=== PATIENT | male | born 1960 | race Caucasian/White ===

== ENCOUNTER 2023-10-02 08:15 | Inpatient (IN) | payer BC ==
[2023-10-02] MEDS: HEPARIN SODIUM 1,000 UN/ML (10ML VL) IV ONE ×2 (08:37→08:39)
[2023-10-02] MEDS: ASPIRIN 81 MG PO STA (08:37)
[2023-10-02] MEDS: SODIUM CHLORIDE 0.9% 1,000 ML IV STA (08:38)
--- NOTE | 2023-10-02 08:39 | ED ---
Chest Pain HPI - General Chief Complaint: Chest Pain Stated Complaint: chest pain Time Seen by Provider: 10/02/23 08:25 Source: patient Mode of arrival: ambulatory Limitations: no limitations - History of Present Illness Initial Comments: 63-year-old man with no diagnosed medical history who presents emergency department reporting chest pain. Chest pain has been on and off since Monday. States the pain is 10 out of 10, substernal with pressure into both of his arms. He denies previous cardiac history. No previous stress testing. Denies high blood pressure, high cholesterol or diabetes. No shortness of breath. No nausea or vomiting. Denies fevers, chills or cough. No other alleviating, precipitating or modifying factors - Related Data Home Medications Medication Instructions Recorded Confirmed Multivitamins, Thera [Multivitamin 1 tab PO DAILY 10/02/23 10/02/23 (formulary)] Vitamin B Complex 1 cap PO DAILY 10/02/23 10/02/23 Vitamin C (Unknown Strength) 1 dose PO DAILY 10/02/23 10/02/23 Vitamin D3 (Unknown Strength) 1 dose PO DAILY 10/02/23 10/02/23 Zinc (Unknown Strength) 1 dose PO DAILY 10/02/23 10/02/23 Allergies Allergy/AdvReac Type Severity Reaction Status Date / Time No Known Allergies Allergy Verified 10/02/23 10:52 Review of Systems ROS Statement: Those systems with pertinent positive or pertinent negative responses have been documented in the HPI. ROS Other: All systems not noted in ROS Statement are negative. Past Medical History Past Medical History: No Reported History History of Any Multi-Drug Resistant Organisms: None Reported Past Surgical History: No Surgical Hx Reported Past Psychological History: No Psychological Hx Reported Smoking Status: Never smoker Past Alcohol Use History: Occasional Past Drug Use History: None Reported General Exam Limitations: no limitations General appearance: alert, in no apparent distress Head exam: Present: atraumatic, normocephalic, normal inspection Eye exam: Present: normal appearance, PERRL, EOMI. Absent: scleral icterus, conjunctival injection, periorbital swelling ENT exam: Present: normal exam, mucous membranes moist Neck exam: Present: normal inspection. Absent: tenderness, meningismus, lymphadenopathy Respiratory exam: Present: normal lung sounds bilaterally. Absent: respiratory distress, wheezes, rales, rhonchi, stridor Cardiovascular Exam: Present: regular rate, normal rhythm, normal heart sounds. Absent: systolic murmur, diastolic murmur, rubs, gallop, clicks GI/Abdominal exam: Present: soft, normal bowel sounds. Absent: distended, t enderness, guarding, rebound, rigid Extremities exam: Present: normal inspection, full ROM, normal capillary refill. Absent: tenderness, pedal edema, joint swelling, calf tenderness Back exam: Present: normal inspection Neurological exam: Present: alert, oriented X3, CN II-XII intact Psychiatric exam: Present: normal affect, normal mood Skin exam: Present: warm, dry, intact, normal color. Absent: rash Course Vital Signs 10/02/23 10/02/23 10/02/23 08:17 08:40 08:50 Temperature 98.3 F Pulse Rate 70 78 80 Respiratory 20 20 18 Rate Blood Pressure 154/105 158/119 161/102 O2 Sat by Pulse 99 98 98 Oximetry Chest Pain MDM - MDM Was pt. sent in by a medical professional or institution (, PA, PREVENTIVE MEDICINE PHYSICIAN, urgent care, hospital, or group home...) When possible be specific @ -No Did you speak to anyone other than the patient for history (EMS, parent, family, police, friend...)? What history was obtained from this source @ -Spoke with family for history Did you review nursing and triage notes (agree or disagree)? Why? @ -I reviewed and agree with nursing and triage notes Were old charts reviewed (outside hosp., previous admission, EMS record, old EKG, old radiological studies, urgent care reports/EKG's, group home records)? Report findings @ -No old charts were reviewed Differential Diagnosis (chest pain, altered mental status, abdominal pain women, abdominal pain men, vaginal bleeding, weakness, fever, dyspnea, syncope, headache, dizziness, GI bleed, back pain, seizure, CVA, palpatations, mental health, musculoskeletal)? @ -Differential Chest Pain: Stable Angina, Unstable Angina, STEMI, NSTEMI Aortic Dissection, Pneumothorax, Musculoskeletal, Esophageal Spasm GERD, Cholecystitis, Pancreatitis, Zoster, this is not meant to be an all-inclusive list. EKG interpreted by me (3pts min.). @ -Yes and demonstrates sinus rhythm with a rate of 77. OK interval 178. QRS 92. QTc of 394. ST segment elevation in V2 through V5, 1 and aVL. Reciprocal depression 3 and aVF. Q waves present X-rays interpreted by me (1pt min.). @ -Yes and demonstrates no acute process CT interpreted by me (1pt min.). @ -None done U/S interpreted by me (1pt. min.). @ -None done What testing was considered but not performed or refused? (CT, X-rays, U/S, labs)? Why? @ -None What meds were considered but not given or refused? Why? @ -None Did you discuss the management of the patient with other professionals (professionals i.e. DrAdolph, PA, PREVENTIVE MEDICINE PHYSICIAN, lab, RT, psych nurse, outreach and education social worker, regional medical director, teacher, executive vice president and chief operating officer, medical case worker)? Give summary @ -Spoke with Dr. Lainez who will take the patient to the [facility]. Also spoke with May from [facility] Was smoking cessation discussed for >3mins.? @ -No Was critical care preformed (if so, how long)? @ -Yes, 35 minutes for management of STEMI Were there social determinants of health that impacted care today? How? (Homelessness, low income, unemployed, alcoholism, drug addiction, transportat ion, low edu. Level, literacy, decrease access to med. care, fdc, rehab)? @ -No Was there de-escalation of care discussed even if they declined (Discuss DNR or withdrawal of care, Hospice)? DNR status @ -No What co-morbidities impacted this encounter? (DM, HTN, Smoking, COPD, CAD, Cancer, CVA, ARF, Chemo, Hep., AIDS, mental health diagnosis, sleep apnea, morbid obesity)? @ -None Was patient admitted / discharged? Hospital course, mention meds given and route, prescriptions, significant lab abnormalities, going to OR and other pertinent info. @ -Upon arrival patient seen and evaluated in room 24. Thorough history and physical exam was performed. Twelve-lead EKG was obtained which demonstrated ST segment elevation. [facility] was activated. Spoke with Dr. Lainez. Patient had been given 4000 units of heparin. He requested an additional 3000 units. Patient was also given aspirin. Liter bolus of normal saline. Patient taken to the [facility] in stable condition Undiagnosed new problem with uncertain prognosis? @ -No Drug Therapy requiring intensive monitoring for toxicity (Heparin, Nitro, Insulin, Cardizem)? @ -No Were any procedures done? @ -No Diagnosis/symptom? @ -Acute chest pain, acute STEMI Acute, or Chronic, or Acute on Chronic? @ -Acute Uncomplicated (without systemic symptoms) or Complicated (systemic symptoms)? @ -Complicated Side effects of treatment? @ -No Exacerbation, Progression, or Severe Exacerbation? @ -No Poses a threat to life or bodily function? How? (Chest pain, [place], MA, pneumonia, PE, COPD, DKA, ARF, appy, cholecystitis, CVA, Diverticulitis, Homicidal, Suicidal, threat to staff... and all critical care pts) @ -Yes as patient arrives with active STEMI Disposition Clinical Impression: STEMI (ST elevation myocardial infarction), Chest pain Disposition: ADMITTED IP TO THIS [facility] Condition: Serious Is patient prescribed a controlled substance at d/c from ED?: No Time of Disposition: 08:39 Decision to Admit Reason: Admit from EC Decision Date: 10/02/23 Decision Time: 08:39
[2023-10-02] MEDS: NITROGLYCERIN SL TABS 0.4 MG TAB SUBLINGUAL PRN (08:40)
[2023-10-02] MEDS ORDERED: NALOXONE 0.4 MG/ML 1 ML VIAL IV PRN (08:45)
[2023-10-02] MEDS ORDERED: fentaNYL (PF) 50 MCG/ML 2 ML AMP ONE ×2 (08:49→12:29)
[2023-10-02 08:50] LABS: Basophils # (A) 0.1 k/uL (0-0.2); Basophils % (A) 1 %; Eosinophils # (A) 0.2 k/uL (0-0.7); Eosinophils % (A) 2 %; HCT 48.4 % (39.0-53.0); HGB 17.2 gm/dL (13.0-17.5); Lymphocytes % (A) 17 %; MCH 33.1 pg (25.0-35.0); MCHC 35.5 g/dL (31.0-37.0); MCV 93.2 fL (80.0-100.0); Mean Platelet Volume 8.8; Monocytes # (A) 0.8 k/uL (0-1.0); Monocytes % (A) 7 %; Neutrophils # (A) 8.5 k/uL (1.3-7.7); Neutrophils % (A) 72 %; Platelet Count 251 k/uL (150-450); RBC 5.19 m/uL (4.30-5.90); RDW 12.7 % (11.5-15.5); WBC 11.8 k/uL (3.8-10.6)
[2023-10-02] MEDS ORDERED: HEPARIN SODIUM 1,000 UN/ML (10ML VL) ONE ×2 (08:51→12:29)
[2023-10-02] MEDS: SODIUM CHLORIDE 0.9% 1,000 ML IV ONE ×2 (08:52→12:39)
[2023-10-02 08:55] LABS: ALT 53 U/L (4-49); AST 43 U/L (17-59); African American GFR (CKD) >90 (>60 ml/min/1.73 sqM); Albumin 4.7 g/dL (3.5-5.0); Alkaline Phosphatase 79 U/L (38-126); Anion Gap 10 mmol/L; Blood Urea Nitrogen 20 mg/dL (9-20); Calcium 9.3 mg/dL (8.4-10.2); Carbon Dioxide 26 mmol/L (22-30); Chloride 103 mmol/L (98-107); Glucose 149 mg/dL (74-99); Non-African American GFR(CKD) 84 (>60 ml/min/1.73 sqM); Partial Thromboplastin Time 22.8 sec (22.0-30.0); Sodium 139 mmol/L (137-145); Total Bilirubin 1.3 mg/dL (0.2-1.3); Total Protein 7.5 g/dL (6.3-8.2)
[2023-10-02] MEDS: LIDOCAINE 1% INJ 10MG/ML (20 ML MDV) SQ ONE ×2 (08:56→12:42)
--- NOTE | 2023-10-02 08:56 | XR ---
EXAMINATION TYPE: XR chest 1V portable DATE OF EXAM: 10/02/2023 COMPARISON: NONE HISTORY: Shortness of breath TECHNIQUE: Frontal and lateral views of the chest are obtained. FINDINGS: Scattered senescent parenchymal changes noted. Hyperinflation compatible with COPD. No evidence for infiltrate. No evidence for atelectasis. Heart size is stable. Mediastinal structures are stable and grossly unremarkable. No evidence for hilar prominence. Degenerative changes dorsal spine. IMPRESSION: 1. No evidence for acute pulmonary disease.
[2023-10-02] MEDS ORDERED: TICAGRELOR 90 MG TAB ONE (08:57)
[2023-10-02] MEDS: fentaNYL (PF) 50 MCG/ML 2 ML AMP IVP ONE ×2 (08:58→12:39)
[2023-10-02] MEDS: VERAPAMIL SYRINGE (5 MG/10 ML) INTRAARTER ONE ×2 (08:59→12:43)
[2023-10-02] MEDS: MIDAZOLAM 2 MG/2 ML VIAL IVP ONE ×2 (08:59→12:39)
[2023-10-02] MEDS: HEPARIN SODIUM 1,000 UN/ML (10ML VL) IVP ONE ×3 (09:01→12:53)
[2023-10-02] MEDS: TICAGRELOR 90 MG TAB PO ONE (09:02)
[2023-10-02] MEDS: IOPAMIDOL-370 100ML BTL INJ ONE ×4 (09:24→12:52)
[2023-10-02] MEDS ORDERED: ONDANSETRON 4 MG/2 ML VIAL ONE (09:37)
[2023-10-02] MEDS: ONDANSETRON 4 MG/2 ML VIAL IVP ONE ×2 (09:40)
[2023-10-02] MEDS: SODIUM CHLORIDE 0.9% 1,000 ML in EMPTY BAG 1 BAG IV SCH (10:30)
[2023-10-02 10:32] LABS: Glucose,Whole Blood 139 mg/dL (70-110)
[2023-10-02] MEDS ORDERED: LIDOCAINE 1% INJ 10MG/ML (20 ML MDV) ONE (12:29)
[2023-10-02] MEDS ORDERED: VERAPAMIL 2.5 MG/ML 2 ML AMP ONE (12:29)
[2023-10-02] MEDS ORDERED: MAG HYDROX/AL HYDROX/SIMETH 30 ML CUP PO PRN (12:30)
[2023-10-02] MEDS ORDERED: ATROPINE SULFATE 0.1 MG/ML 10ML SYRINGE IV PRN (12:30)
[2023-10-02] MEDS ORDERED: ZOLPIDEM 5 MG TAB PO PRN (12:30)
[2023-10-02] MEDS ORDERED: RX INFO: IV CONTRAST WAS GIVEN 1 EACH MISC MISCELLANE PRN (12:30)
--- NOTE | 2023-10-02 13:01 | P.PRCINT ---
Percutaneous Coronary Int. - Percutaneous Coronary Intervention Percutaneous Coronary Intervention: PROCEDURES PERFORMED: Left heart catheterization, bilateral coronary angiography, ultrasound guided arterial access, PCI proximal LAD with a 3.5 x 12mm Xience FABRIZIO, post dilated with a 4.0 NC balloon, IVUS LAD, PCI proximal RCA with a 5.0 x 12mm Xience FABRIZIO, PCI mid RCA with a 5.0 x 15mm Xience FABRIZIO post dilated with a 5.0mm NC balloon, IVUS RCA INDICATION: Anterior STEMI CONSENT:I have discussed the risks, benefits and alternative therapies for the above-mentioned procedure and for both sedation/analgesia as well as necessary blood product administration, if indicated, as they pertain to this patient. The patient has indicated understanding and acceptance of the risks and procedures discussed. PROCEDURE: After the risks, benefits and alternatives of the above mentioned procedure explained in detail with the patient, informed consent was obtained. Patient was taken to the catheterization lab and prepped and draped in usual fashion. Ultrasound guidance was used to assess for arterial access. 1% lidocaine was used to anesthetize the right radial artery. A 6-[place] sheath was placed in the right radial artery using modified Seldinger technique and ultrasound guidance. The decision was made to perform PCI of the LAD. A 6 [place] CLS 3.5 guide was used to engage the left main. A 0.014 BMW wire was advanced into the LAD and an additional 0.014 whisper wire was advanced into the diagonal 1 branch. The mid LAD appeared to be occluded with culprit lesion in the proximal LAD. Initial attempts were made at wiring however unable to appreciate any nub and this was felt possibly old with prior Q waves in the anterior lateral leads. Balloon angioplasty was performed with a 3.0 balloon. Intravascular ultrasound showed reference vessel 4.0 mm more proximally and 3.5 mm more distally. PCI was performed with a 3.5 x 12 mm Xience FABRIZIO of the proximal LAD. The proximal portion of the stent was postdilated with a 4.0 noncompliant balloon. Repeat intravascular ultrasound was performed which showed well-expanded stent without significant issues and no dissection. Final angiograms were performed. Preintervention there was 99% stenosis with JOHN PAUL II flow and postintervention there was less than 10% stenosis with JOHN PAUL-3 flow. Diagnostic right coronary angiography was performed with a 5 [place] AR-2 catheter. Given ongoing chest pain with severe RCA disease, PCI was recommended. A 6 [place] AL 0.75 guide was used to engage the RCA. There was dampening noted with engagement. A 0.014 BMW wire was advanced into the distal RCA. Intravascular ultrasound showed severe proximal as well as mid RCA disease with reference vessel 5.0 mm and more diffuse mild 20 to 30% RCA disease. Therefore the mid to distal portion was stented with a 5.0 x 15 mm Xience FABRIZIO and the proximal portion was stented with a 5.0 x 12 mm Xience FABRIZIO. Both stents were postdilated with a 5.0 noncompliant balloon. Repeat intravascular ultrasound showed well-expanded stent with no dissection. Final angiograms were performed. Preintervention there was 95% stenosis and JOHN PAUL-3 flow and postintervention there was less than 10% stenosis with JOHN PAUL-3 flow. There was disease noted in the PLV branch however given contrast threshold and not critical felt best treated medically at this time. A 5-[place] AR2 catheter was inserted into the left ventricle and pressure measurements were obtained. The right radial sheath was removed and a TR band was placed with hemostasis achieved. The patient tolerated the procedure well. Patient was transported back to the post catheterization holding area in stable condition. Conscious Sedation: Patient was monitored under the direct supervision of myself for conscious sedation using Versed and fentanyl for a total duration of 66 minutes HEMODYNAMICS: Aorta: 112/72 LV: 115/5, LVEDP 18 SELECTIVE CORONARY ARTERIOGRAPHY: LEFT MAIN: The left main is a large caliber vessel which bifurcates into the LAD and circumflex. There is no significant stenosis. LEFT ANTERIOR DESCENDING CORONARY ARTERY: LAD is a large caliber vessel which wraps around to the apex. There is a 99% proximal LAD stenosis with hazy thrombus noted. This gives off a moderate caliber diagonal 1 branch and then after the diagonal branch gives off a small to moderate first septal and a small caliber diagonal 2 branch. There does appear to be total occlusion of the mid LAD with some faint left to left collaterals. LEFT CIRCUMFLEX CORONARY ARTERY: Left circumflex is a moderate caliber vessel. The circumflex gives off a very small caliber OM1 and then a more small to moderate caliber OM 2 branch. OM 2 branch has a proximal 95% stenosis. The circumflex then gives off an AV branch circumflex without significant disease. RIGHT CORONARY ARTERY: The right coronary artery is a large caliber vessel which gives off a PDA and PLV branch and is the dominant vessel. There is a proximal RCA 90% stenosis followed by a mid RCA 30% stenosis. The mid to distal RCA has a 95% stenosis. The PLV has a mid 90% stenosis. FINAL IMPRESSION: 1. CAD as described above including 99% proximal LAD, 100% mid LAD, 90% proximal RCA, 95% mid to distal RCA, 90% PLV, 95% small caliber OM 2 2. Mildly elevated left sided filling pressures 3. S/p PCI proximal LAD with a 3.5 x 12mm Xience FABRIZIO, post dilated with a 4.0 NC balloon, IVUS LAD, PCI proximal RCA with a 5.0 x 12mm Xience FABRIZIO, PCI mid RCA with a 5.0 x 15mm Xience FABRIZIO post dilated with a 5.0mm NC balloon, IVUS RCA PLAN: 1. Aggressive risk factor modification per most recent ACC/AHA guidelines. 2. Continue dual antiplatelets with aspirin and Brilinta for 12 months 3. Mid LAD lesion appears chronically occluded with no robust collaterals and would attempt medical therapy. Additionally PLV and small caliber OM 2 have significant disease however would attempt medical therapy.
--- NOTE | 2023-10-02 13:05 | P.CARDCATH ---
Description of Procedure: PROCEDURES PERFORMED: Bilateral coronary angiography, ultrasound guided arterial access INDICATION: STEMI status post PCI with worsening chest pain CONSENT:I have discussed the risks, benefits and alternative therapies for the above-mentioned procedure and for both sedation/analgesia as well as necessary blood product administration, if indicated, as they pertain to this patient. The patient has indicated understanding and acceptance of the risks and procedures discussed. PROCEDURE: After the risks, benefits and alternatives of the above mentioned procedure explained in detail with the patient, informed consent was obtained. Patient was taken to the catheterization lab and prepped and draped in usual fashion. Ultrasound guidance was used to assess for arterial access. 1% lidocaine was used to anesthetize the left radial artery. A 6-[place] sheath was placed in the left radial artery using modified Seldinger technique and ultrasound guidance. Left coronary angiography was performed with a 5-[place] JL 4.0 catheter and right coronary angiography was performed with a 5-[place] FR4 catheter in various views. The left radial sheath was removed and a TR band was placed with hemostasis achieved. The patient tolerated the procedure well. Patient was transported back to the post catheterization holding area in stable condition. Conscious Sedation: Patient was monitored under the direct supervision of myself for conscious sedation using Versed and fentanyl for a total duration of 13 minutes HEMODYNAMICS: Aortic: 134/72 SELECTIVE CORONARY ARTERIOGRAPHY: LEFT MAIN: The left main is a large caliber vessel which bifurcates into the LAD and circumflex. There is no significant stenosis. LEFT ANTERIOR DESCENDING CORONARY ARTERY: LAD is a large caliber vessel which wraps around to the apex. There is a patent proximal LAD stent. This gives off a moderate caliber diagonal 1 branch and then after the diagonal branch gives off a small to moderate first septal and a small caliber diagonal 2 branch. There does appear to be total occlusion of the mid LAD with some faint left to left collaterals. LEFT CIRCUMFLEX CORONARY ARTERY: Left circumflex is a moderate caliber vessel. The circumflex gives off a very small caliber OM1 and then a more small to moderate caliber OM 2 branch. OM 2 branch has a proximal 95% stenosis. The circumflex then gives off an AV branch circumflex without significant disease. RIGHT CORONARY ARTERY: The right coronary artery is a large caliber vessel which gives off a PDA and PLV branch and is the dominant vessel. There is a patent proximal RCA and mid to distal RCA stent. The mid RCA has a 30% stenosis. The PLV has a mid 90% stenosis. FINAL IMPRESSION: 1. CAD as described above with patent proximal LAD, proximal and mid RCA stent with additional small caliber OM 2 95% and PLV 90% stenosis. PLAN: 1. Aggressive risk factor modification per most recent ACC/AHA guidelines. 2. Images appear unchanged from prior angiograms. Continue medical therapy and chest pain currently improved back to his prior 4 out of 10. If worsening chest pain could consider attempted stenting of OM 2 or PLV however given contrast threshold attempt medical therapy
--- NOTE | 2023-10-02 13:26 | P.HPIM ---
History of Present Illness H&P Date: 10/02/23 This is a 63-year-old male who presented to the emergency department with family after reporting getting up this morning and having some increasing chest pain 10/10 on the pain scale that was substernal and radiating down both of his arms. Patient reports he was driving his way to work and turned around went back home and asked his family to bring him. Patient also reported he had been having some chest pain intermittently on Monday that lasted a few hours with some heaviness although somewhat subsided. Patient reports Monday was okay with no acute issues and Monday morning the symptoms presented again with worsening pain. Patient does follow with Dr. Nicholas in the outpatient setting with no reported significant comorbidities other than obesity with a BMI of 33.5. Patient reports he does not smoke and occasionally drinks a few times a week and denies any other illicit drug use. EKG was suggestive of STEMI and code STEMI was called and patient was brought to the Continuing Education Director. Chest x-ray in the ER showed no evidence for acute pulmonary disease and heart size is stable. Labs r evealed a troponin of 0.820, blood sugar was 149, kidney functions within normal limits, white count mildly reactive at 11.8. Patient denies any recent sick contacts or any increased stress in his life. Patient was admitted and awaiting catheterization report. REVIEW OF SYSTEMS: CONSTITUTIONAL: No fever, no malaise, no fatigue. HEENT: No recent visual problems or hearing problems. Denied any sore throat. CARDIOVASCULAR: Reports of severe chest pain, orthopnea, PND, no palpitations, no syncope. Reported having episode of diaphoresis and sweating and feeling dizzy PULMONARY: Reported some shortness of breath that has resolved, no cough, no hemoptysis. GASTROINTESTINAL: No diarrhea, no nausea, no vomiting, no abdominal pain. NEUROLOGICAL: No headaches, no weakness, no numbness. HEMATOLOGICAL: Denies any bleeding or petechiae. GENITOURINARY: Denies any burning micturition, frequency, or urgency. MUSCULOSKELETAL/RHEUMATOLOGICAL: Denies any joint pain, swelling, or any muscle pain. ENDOCRINE: Denies any polyuria or polydipsia. The rest of the 14-point review of systems is negative. PHYSICAL EXAMINATION: GENERAL: The patient is alert and oriented x3, Well developed, well nourished. Obese HEENT: Pupils are round and equally reacting to light. EOMI. No scleral icterus. No conjunctival pallor. Normocephalic, atraumatic. No pharyngeal erythema. No thyromegaly. CARDIOVASCULAR: S1 and S2 muffled PULMONARY: Chest is clear to auscultation, no wheezing or crackles. ABDOMEN: Soft, nontender, nondistended, normoactive bowel sounds. No palpable organomegaly. MUSCULOSKELETAL: No joint swelling or deformity. EXTREMITIES: No cyanosis, clubbing, or pedal edema. NEUROLOGICAL: Gross neurological examination did not reveal any focal deficits. SKIN: No rashes. Assessment: Chest pain, acute STEMI status post left heart cardiac catheterization with PCI stenting to the LAD proximal RCA and mid RCA Elevated troponin, secondary to above Leukocytosis, likely reactive Obesity with a BMI of 33.5 GI prophylaxis DVT prophylaxis Full code Plan: Patient is status postcardiac catheterization with [address] Lainez and cardiology following closely Patient is continued in the ICU on close management recommend continued telemetry monitoring Continue current medications per cardiology Will follow-up on repeat echo Encouraged oral intake with small frequent meals Prognosis is guarded The impression and plan of care has been dictated by Susanne Looney, Nurse Practitioner as directed. Dr. Alonso MD I have performed a history and examination and MDM of this patient, discussed the same with the dictator, and agree with the dictator's assessment and plan as written ,documented as a scribe. Based on total visit time, I have performed more than 50% of the visit. Past Medical History Past Medical History: No Reported History History of Any Multi-Drug Resistant Organisms: None Reported Past Surgical History: No Surgical Hx Reported Past Psychological History: No Psychological Hx Reported Smoking Status: Never smoker Past Alcohol Use History: Occasional Past Drug Use History: None Reported Medications and Allergies Home Medications Medication Instructions Recorded Confirmed Type Multivitamins, Thera [Multivitamin 1 tab PO DAILY 10/02/23 10/02/23 History (formulary)] Vitamin B Complex 1 cap PO DAILY 10/02/23 10/02/23 History Vitamin C (Unknown Strength) 1 dose PO DAILY 10/02/23 10/02/23 History Vitamin D3 (Unknown Strength) 1 dose PO DAILY 10/02/23 10/02/23 History Zinc (Unknown Strength) 1 dose PO DAILY 10/02/23 10/02/23 History Allergies Allergy/AdvReac Type Severity Reaction Status Date / Time No Known Allergies Allergy Verified 10/02/23 10:52 Physical Exam Vitals: Vital Signs Temp Pulse Resp BP Pulse Ox 10/02/23 09:05 99 10/02/23 08:50 80 18 161/102 98 10/02/23 08:40 78 20 158/119 98 10/02/23 08:17 98.3 F 70 20 154/105 99 Intake and Output 10/01/23 10/02/23 10/02/23 22:59 06:59 14:59 Other: Weight 99.79 kg Results CBC & Chem 7: 10/02/23 08:30 10/02/23 08:30 Labs: Abnormal Lab Results - Last 24 Hours (Table) 10/02/23 10/02/23 10/02/23 Range/Units 08:30 08:30 08:30 WBC 11.8 H (3.8-10.6) k/uL Neutrophils # 8.5 H (1.3-7.7) k/uL Glucose 149 H (74-99) mg/dL ALT 53 H (4-49) U/L Troponin I 0.820 H* (0.000-0.034) ng/mL Thrombosis Risk Factor Assmnt - DVT/VTE Prophylaxis DVT/VTE Prophylaxis: Pharmacologic Prophylaxis ordered Assessment and Plan Time with Patient: Less than 30
[2023-10-02] MEDS: METOPROLOL SUCCINATE (ER) 25 MG TAB.ER.24H PO SCH (14:07)
[2023-10-02] MEDS: HEPARIN SOD,PORK IN 0.45% NACL 25,000 UNIT in 0.45% NACL 1 250ML.BAG IV SCH (14:17)
--- NOTE | 2023-10-02 14:27 | P.CRDCN ---
History of Present Illness Consult date: 10/02/23 Reason for Consult (text): STEMI History of present illness: History of present illness: This is a 63-year-old male patient with no previous cardiac history, does not follow with a ad trafficker. Patient developed chest pain on Monday that was pressure along with discomfort in both arms. He presented to the emergency center this morning stating pain was a 10 out of 10. Initial blood pressure 154/105. Patient was found to have ST elevation on initial EKG and STEMI alert was called and patient was immediately taken to the Waiver Analyst. Home cardiac medications: None Review Of Systems: At the time of my exam: CONSTITUTIONAL: Denies fever or chills. HEENT: Denies blurred vision, vision changes, or eye pain. Denies hemoptysis CARDIOVASCULAR: Reports chest pain. Denies orthopnea. Denies PND. Denies palpitations RESPIRATORY: Denies shortness of breath. GASTROINTESTINAL: Denies abdominal pain. Denies nausea or vomiting. HEMATOLOGIC: Denies bleeding disorders. GENITOURINARY: Denies any blood in urine. SKIN: Denies pruitis. Denies rash. Physical examination: Gen: This is a 63-year-old male, appears stable. No acute respiratory distress. VS: reviewed HEENT: Head is atraumatic, normocephalic. Pupils equal, round. Sclerae is ani cteric. NECK: Supple. No JVD. LUNGS: Clear to auscultation. No wheezes or rhonchi. No intercostal retractions. HEART: Regular rate and rhythm. No murmur. ABDOMEN: Soft No tenderness. EXTREMITIES: No pedal edema. No calf tenderness. NEUROLOGICAL: Patient is awake, alert and oriented x3. Assessment: Anterior wall ST elevated [place] Accelerated hypertension Plan: Patient taken urgently for cardiac cath Obtain 2-D echocardiogram and Doppler study to assess cardiac structure and function Further recommendations to follow based upon clinical course Thank you kindly for this consultation. Nurse practitioner note has been reviewed, I agree with documented findings and plan of care. Patient was seen and examined. Past Medical History Past Medical History: No Reported History History of Any Multi-Drug Resistant Organisms: None Reported Past Surgical History: No Surgical Hx Reported Past Psychological History: No Psychological Hx Reported Smoking Status: Never smoker Past Alcohol Use History: Occasional Past Drug Use History: None Reported Medications and Allergies Home Medications Medication Instructions Recorded Confirmed Type Multivitamins, Thera [Multivitamin 1 tab PO DAILY 10/02/23 10/02/23 History (formulary)] Vitamin B Complex 1 cap PO DAILY 10/02/23 10/02/23 History Vitamin C (Unknown Strength) 1 dose PO DAILY 10/02/23 10/02/23 History Vitamin D3 (Unknown Strength) 1 dose PO DAILY 10/02/23 10/02/23 History Zinc (Unknown Strength) 1 dose PO DAILY 10/02/23 10/02/23 History Allergies Allergy/AdvReac Type Severity Reaction Status Date / Time No Known Allergies Allergy Verified 10/02/23 10:52 Physical Exam Vitals: Vital Signs Temp Pulse Resp BP Pulse Ox 10/02/23 08:17 98.3 F 70 20 154/105 99 Intake and Output 10/01/23 10/02/23 10/02/23 22:59 06:59 14:59 Other: Weight 99.79 kg Results 10/02/23 08:30 10/02/23 08:30 Current Medications Generic Name Dose Route Start Last Admin Trade Name Freq PRN Reason Stop Dose Admin Sodium Chloride 1,000 mls @ 999 mls/hr 10/02/23 08:33 10/02/23 08:38 Saline 0.9% IV 10/02/23 09:33 999 mls/hr .Q1H1M STA Administration Naloxone HCl 0.2 mg 10/02/23 08:45 Naloxone 0.4 Mg/Ml 1 Ml Vial IV Q2M PRN Opioid Reversal Nitroglycerin 0.4 mg 10/02/23 08:33 10/02/23 08:40 Nitroglycerin Sl Tabs 0.4 Mg Tab SUBLINGUAL 0.4 mg Q5M PRN Administration Chest Pain Intake and Output 10/01/23 10/02/23 10/02/23 22:59 06:59 14:59 Other: Weight 99.79 kg Patient Weight 10/03/23 06:59 Weight 99.79 kg
[2023-10-02] MEDS: MORPHINE SULFATE 2 MG/ML SYRINGE IVP PRN (18:20)
--- NOTE | 2023-10-02 19:52 | CA ---
Transthoracic Echo Report Name: Jorgito Kaba Age: 63 Gender: M : 1960 Exam Date: 10/02/2023 12:32 Exam Location: [facility] Ht (in): 68 Wt (lb): 220 Ordering Physician: Suzanne Bobo Attending/Referring Phys: [id number], Jer[employer] Representative Orin Sanchez RCS Procedure CPT: Indications: LVF Cardiac Hx: Technical Quality: Technically difficult study Contrast 1: Definity Total Dose (mL): 2 Contrast 2: Total Dose (mL): MEASUREMENTS (Male / Female) Normal Values 2D ECHO LV Diastolic Diameter PLAX 5.1 cm 4.2 - 5.9 / 3.9 - 5.3 cm LV Systolic Diameter PLAX 3.7 cm IVS Diastolic Thickness 1.0 cm 0.6 - 1.0 / 0.6 - 0.9 cm LVPW Diastolic Thickness 1.0 cm 0.6 - 1.0 / 0.6 - 0.9 cm LV Relative Wall Thickness 0.4 RV Internal Dim ED PLAX 3.3 cm LVOT Diameter 2.1 cm Aortic Root Diameter 3.8 cm LV Diastolic Volume MOD BP 180.9 cm??? 67 - 155 / 56 - 104 cm??? LV Systolic Volume MOD BP 111.7 cm??? 22 - 58 / 19 - 49 cm??? LV Ejection Fraction MOD BP 38.3 % >= 55 % LV Cardiac Index MOD BP 2304.2 cm???/min???m??? LV Diastolic Volume MOD 4C 181.0 cm??? LV Systolic Volume MOD 4C 112.6 cm??? LV Ejection Fraction MOD 4C 37.8 % LV Cardiac Index MOD 4C 2276.8 cm???/min???m??? LV Diastolic Length 4C 9.1 cm LV Systolic Length 4C 7.8 cm LV Diastolic Volume MOD 2C 178.2 cm??? LV Systolic Volume MOD 2C 109.1 cm??? LV Ejection Fraction MOD 2C 38.8 % LV Cardiac Index MOD 2C 2302.3 cm???/min???m??? LV Diastolic Length 2C 9.2 cm LV Systolic Length 2C 7.5 cm Ascending Aorta Diameter 4.2 cm DOPPLER AV Peak Velocity 110.4 cm/s AV Peak Gradient 4.9 mmHg AV Mean Velocity 82.3 cm/s AV Mean Gradient 2.9 mmHg AV Velocity Time Integral 21.3 cm LVOT Peak Velocity 109.4 cm/s LVOT Peak Gradient 4.8 mmHg LVOT Velocity Time Integral 21.1 cm LVOT Stroke Volume 74.8 cm??? LVOT Stroke Volume Index 35.1 ml/m??? LVOT Cardiac Index 2490.0 cm???/min???m??? AV Area Cont Eq vti 3.5 cm??? AV Area Cont Eq pk 3.5 cm??? Mitral E Point Velocity 41.9 cm/s Mitral A Point Velocity 81.2 cm/s Mitral E to A Ratio 0.5 MV Deceleration Time 148.7 ms MV E' Velocity 4.4 cm/s Mitral E to MV E' Ratio 9.6 TR Peak Velocity 283.3 cm/s TR Peak Gradient 32.1 mmHg PV Peak Velocity 106.8 cm/s PV Peak Gradient 4.6 mmHg FINDINGS Left Ventricle Left ventricular ejection fraction is estimated at 35-40 %. Moderately increased left ventricular diastolic volume. Severely increased left ventricular systolic volume. Moderately decreased left ventricular ejection fraction. Akinetic apex, mid anterolateral, inferior, lateral and inferolateral. Grade 1 diastolic dysfunction. Right Ventricle Mild right ventricular dilatation with normal function, best preserved at the base. Unable to estimate right ventricular systolic function. Right Atrium Normal right atrial size. Left Atrium Normal left atrial size. Mitral Valve Structurally normal mitral valve. No mitral stenosis, regurgitation or prolapse. Aortic Valve Trileaflet aortic valve. No aortic valve stenosis or regurgitation. Tricuspid Valve Structurally normal tricuspid valve. No tricuspid stenosis. Trace tricuspid regurgitation. Pulmonic Valve Pulmonic valve not well visualized. No pulmonic stenosis. No pulmonic regurgitation. Pericardium No pericardial effusion. Aorta Normal size aortic root. Mildly enlarged ascending aorta. CONCLUSIONS Severe LV dysfunction Only the basal LV appears to be gail. 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 Cameron Garrison MD (Electronically Signed) Final Date: 02 October 2023 19:51
[2023-10-02] MEDS: NITROGLYCERIN-D5W PMX 50 MG in DEXTROSE/WATER 1 250ML.BAG IV SCH (20:52)
[2023-10-02] MEDS: ATORVASTATIN 80 MG TAB PO SCH (21:11)
[2023-10-02] MEDS: TICAGRELOR 90 MG TAB PO SCH (21:11)
[2023-10-02] MEDS: HEPARIN SODIUM 1,000 UN/ML (10ML VL) IV PRN (21:14)
[2023-10-03 04:14] LABS: Basophils % (A) 0 %; Eosinophils % (A) 0 %; HCT 43.2 % (39.0-53.0); HGB 14.4 gm/dL (13.0-17.5); Lymphocytes # (A) 1.2 k/uL (1.0-4.8); Lymphocytes % (A) 7 %; MCH 31.8 pg (25.0-35.0); MCHC 33.4 g/dL (31.0-37.0); MCV 95.2 fL (80.0-100.0); Mean Platelet Volume 9.1; Monocytes # (A) 1.1 k/uL (0-1.0); Monocytes % (A) 7 %; Neutrophils # (A) 14.1 k/uL (1.3-7.7); Neutrophils % (A) 85 %; Platelet Count 214 k/uL (150-450); RBC 4.53 m/uL (4.30-5.90); RDW 12.6 % (11.5-15.5); WBC 16.6 k/uL (3.8-10.6)
[2023-10-03 04:47] LABS: Partial Thromboplastin Time 38.5 sec (22.0-30.0); Prothrombin Time 11.1 sec (10.0-12.5)
[2023-10-03 07:04] LABS: African American GFR (CKD) >90 (>60 ml/min/1.73 sqM); Anion Gap 7 mmol/L; Basophils % (A) 0 %; Blood Urea Nitrogen 12 mg/dL (9-20); Calcium 8.5 mg/dL (8.4-10.2); Carbon Dioxide 24 mmol/L (22-30); Chloride 103 mmol/L (98-107); Eosinophils % (A) 0 %; Glucose 130 mg/dL (74-99); HCT 42.1 % (39.0-53.0); HGB 14.2 gm/dL (13.0-17.5); Lymphocytes % (A) 6 %; MCH 32.4 pg (25.0-35.0); MCHC 33.8 g/dL (31.0-37.0); MCV 95.8 fL (80.0-100.0); Mean Platelet Volume 9.1; Monocytes % (A) 6 %; Neutrophils # (A) 13.5 k/uL (1.3-7.7); Neutrophils % (A) 86 %; Non-African American GFR(CKD) >90 (>60 ml/min/1.73 sqM); Platelet Count 217 k/uL (150-450); Potassium 4.2 mmol/L (3.5-5.1); RDW 12.7 % (11.5-15.5); Sodium 134 mmol/L (137-145); WBC 15.7 k/uL (3.8-10.6)
[2023-10-03] MEDS ORDERED: METOPROLOL SUCCINATE (ER) 25 MG TAB.ER.24H PO SCH (09:00)
[2023-10-03] MEDS: ASPIRIN 81 MG PO SCH (09:42)
[2023-10-03 09:56] LABS: Chol/HDL Ratio 3.64 Ratio; LDL Cholesterol,Calculated 80.3 mg/dL (0.0-131.0); VLDL Calculation 17.62 mg/dL (5.00-40.00)
[2023-10-03 14:15] VITALS: BMI 35.7
--- NOTE | 2023-10-03 15:55 | P.PN ---
Subjective History of present illness: This is a 63-year-old male patient with no previous cardiac history, does not follow with a data management engineer. Patient developed chest pain on Monday that was pressure along with discomfort in both arms. He presented to the emergency center this morning stating pain was a 10 out of 10. Initial blood pressure 154/105. Patient was found to have ST elevation on initial EKG and STEMI alert was called and patient was immediately taken to the Custom Decorating Consultant. Home cardiac medications: None 10/02 patient seen and examined. Patient had recurrent chest pain yesterday with rising elevated troponins. Initially after catheterization his chest pain was approximate 4 however it had increased up to 8 and this was somewhat improved with nitro. Nitro however brought his blood pressure down. Given concern of stent thrombosis repeat heart catheterization was performed which showed stable stents however still residual small caliber circumflex and PLV. He has had fluctuating chest pain and this is somewhat improved with morphine and nitro. It is still however 4 out of 10. He does get some pain with [id number] exertion. The LAD appears to be flush occluded and suspicion of REVERSE LOGISTICS ANALYST. Given ongoing symptoms however we discussed possibly repeating heart catheterization and possible PCI of circumflex or PLV. Physical examination: Gen: This is a 63-year-old male, appears stable. No acute respiratory distress. VS: reviewed HEENT: Head is atraumatic, normocephalic. Pupils equal, round. Sclerae is anicteric. NECK: Supple. No JVD. LUNGS: Clear to auscultation. No wheezes or rhonchi. No intercostal retractions. HEART: Regular rate and rhythm. No murmur. ABDOMEN: Soft No tenderness. EXTREMITIES: No pedal edema. No calf tenderness. NEUROLOGICAL: Patient is awake, alert and oriented x3. Assessment: Anterior wall ST elevated [place] Accelerated hypertension recurrent chest pain Ischemic cardiomyopathy EF 35-40% Plan: optimize heart failure regimen as able. Continue dual antiplatelets with aspirin and Brilinta Continue Toprol and add losartan and jardiance for heart failure management. Continue with nitro for now. Some of chest pain is atypical however he has had leg elevation and troponin more concerning for more ischemia and some of this chest pain is worse with exertion. Discussed repeating heart catheterization with possible PCI of circumflex or PLV or further evaluation of LAD disease. Patient is agreeable. Ideally wait until 10/03 to give time for contrast washout. If has worsening chest pain however would take more urgently. Objective - Vital Signs Vital signs: Vital Signs Temp 99.9 F H 10/03/23 08:00 Pulse 92 10/03/23 14:00 Resp 11 L 10/03/23 14:00 BP 133/88 10/03/23 14:00 Pulse Ox 93 L 10/03/23 14:00 FiO2 Intake & Output 10/02/23 10/03/23 10/03/23 18:59 06:59 18:59 Intake Total 2060 1099.985 201.875 Output Total 473 266 6336 Balance 1610 799.985 -948.125 Weight 99.79 kg 106.7 kg 106.7 kg Intake: IV 1210 900 140 0.9 sodium chloride 810 900 140 Intake, IV Titration 199.985 61.875 Amount Heparin Sod,Pork in 0.45% 199.385 NaCl 25,000 unit In 0.45 % NaCl 1 250ml.bag @ 10. 021 UNITS/KG/HR 10 mls/hr IV .Q24H [facility] Rx#: [id number] Nitroglycerin-D5w Pmx 50 0.6 61.875 mg In Dextrose/Water 1 250ml.bag @ 5 MCG/MIN 1.5 mls/hr IV .Q24H [facility] Rx#: [id number] Oral 850 Output: Urine 496 246 2932 Other: Voiding Method Urinal Urinal Urinal - Labs CBC & Chem 7: 10/03/23 05:30 10/03/23 05:30 Labs: Abnormal Lab Results - Last 24 Hours (Table) 10/02/23 10/02/23 10/03/23 Range/Units 19:45 21:02 00:40 WBC (3.8-10.6) k/uL Neutrophils # (1.3-7.7) k/uL Monocytes # (0-1.0) k/uL APTT 35.1 H (22.0-30.0) sec Sodium (137-145) mmol/L Creatinine (0.66-1.25) mg/dL Glucose (74-99) mg/dL Troponin I 43.300 H* 56.300 H* (0.000-0.034) ng/mL HDL Cholesterol (40.00-60.00) mg/dL 10/03/23 10/03/23 10/03/23 Range/Units 03:32 03:32 03:32 WBC 16.6 H (3.8-10.6) k/uL Neutrophils # 14.1 H (1.3-7.7) k/uL Monocytes # 1.1 H (0-1.0) k/uL APTT 38.5 H (22.0-30.0) sec Sodium (137-145) mmol/L Creatinine (0.66-1.25) mg/dL Glucose (74-99) mg/dL Troponin I (0.000-0.034) ng/mL HDL Cholesterol 37.10 L (40.00-60.00) mg/dL 10/03/23 10/03/23 10/03/23 Range/Units 03:32 05:30 05:30 WBC 15.7 H (3.8-10.6) k/uL Neutrophils # 13.5 H (1.3-7.7) k/uL Monocytes # (0-1.0) k/uL APTT (22.0-30.0) sec Sodium (137-145) mmol/L Creatinine (0.66-1.25) mg/dL Glucose (74-99) mg/dL Troponin I 49.200 H* 48.100 H* (0.000-0.034) ng/mL HDL Cholesterol (40.00-60.00) mg/dL 10/03/23 10/03/23 Range/Units 05:30 11:47 WBC (3.8-10.6) k/uL Neutrophils # (1.3-7.7) k/uL Monocytes # (0-1.0) k/uL APTT 47.4 H (22.0-30.0) sec Sodium 134 L (137-145) mmol/L Creatinine 0.64 L (0.66-1.25) mg/dL Glucose 130 H (74-99) mg/dL Troponin I (0.000-0.034) ng/mL HDL Cholesterol (40.00-60.00) mg/dL
[2023-10-03] MEDS: LOSARTAN 25 MG TAB PO SCH (16:25)
--- NOTE | 2023-10-03 17:09 | P.PN ---
Subjective Progress Note Date: 10/03/23 This is a 63-year-old male who presented to the emergency department with family after reporting getting up this morning and having some increasing chest pain 10/10 on the pain scale that was substernal and radiating down both of his arms. Patient reports he was driving his way to work and turned around went back home and asked his family to bring him. Patient also reported he had been having some chest pain intermittently on Monday that lasted a few hours with some heaviness although somewhat subsided. Patient reports Monday was okay with no acute issues and Monday morning the symptoms presented again with worsening pain. Patient does follow with Dr. Nicholas in the outpatient setting with no reported significant comorbidities other than obesity with a BMI of 33.5. Patient reports he does not smoke and occasionally drinks a few times a week and denies any other illicit drug use. EKG was suggestive of STEMI and code STEMI was called and patient was brought to the [facility]. Chest x-ray in the ER showed no evidence for acute pulmonary disease and heart size is stable. Labs revealed a troponin of 0.820, blood sugar was 149, kidney functions within normal limits, white count mildly reactive at 11.8. Patient denies any recent sick contacts or any increased stress in his life. Patient was admitted and awaiting catheterization report. 10/03/2023 Patient was seen and evaluated in follow-up this morning in the ICU and apparently had increased shortness of breath, diaphoresis, chest pain and brought back to the [facility] yesterday afternoon showing patent stents. Patient does have significant coronary with concerns of needing further stenting and will continue with cardiac regimen for now and close ICU monitoring on a nitro drip and considering repeat cardiac catheterization for further PCI stenting on 10/04/2023. Patient to continue with morphine as needed as well. Blood pressures on the lower side and will be monitored closely. Patient is afebrile and denies nausea or vomiting and reports not much of an appetite. Patient is currently on bedrest at this time. Patient is somewhat anxious and reports 6 out of 10 pain with jaw pain and included in recurrent chest pain symptoms. Review of systems: Constitutional: No reports of fatigue, fever, or chills Cardiovascular: reports of chest pain as well as jaw pain Respiratory: No reports of worsening shortness of breath or cough GI: No reports of nausea, vomiting, or diarrhea, reports not much of an appetite : No reports of dysuria or retention Neurovascular: No reports of weakness or numbness All medications have been reviewed PHYSICAL EXAMINATION: GENERAL: The patient is alert and oriented x3, Well developed, well nourished. Obese, anxious HEENT: Pupils are round and equally reacting to light. EOMI. No scleral icterus. No conjunctival pallor. Normocephalic, atraumatic. No pharyngeal erythema. No thyromegaly. CARDIOVASCULAR: S1 and S2 muffled PULMONARY: Chest is clear to auscultation, no wheezing or crackles. ABDOMEN: Soft, nontender, nondistended, normoactive bowel sounds. No palpable o rganomegaly. MUSCULOSKELETAL: No joint swelling or deformity. EXTREMITIES: No cyanosis, clubbing, or pedal edema. NEUROLOGICAL: Gross neurological examination did not reveal any focal deficits. SKIN: No rashes. Assessment: Chest pain, acute STEMI status post left heart cardiac catheterization with PCI stenting to the LAD proximal RCA and mid RCA with persistent chest pain underwent further cardiac catheterization with patent stents although considering repeat cardiac catheterization on 10/04/2023 Elevated troponin, secondary to above Leukocytosis, likely reactive Obesity with a BMI of 33.5 GI prophylaxis DVT prophylaxis Full code Plan: Patient is status postcardiac catheterization with [address] Lainez and cardiology following closely. Apparently patient had increased chest pain with diaphoresis and dizziness and jaw pain and was brought back to the [facility] noted to have patent stents. Discussing possible recatheterization again on 10/04/2023 for continued symptoms and possibly further PCI stenting Patient is continued in the ICU on close management recommend continued telemetry monitoring Continue current medications per cardiology Echo was noted to be an EF of 35 to 40% with severe LV dysfunction noted in the distal half of the LV appears aneurysmal with no obvious intracardiac thrombus Encouraged oral intake with small frequent meals Prognosis is extremely guarded at this time The impression and plan of care has been dictated by Susanne Looney, Nurse Practitioner as directed. Dr. Alonso MD I have performed a history and examination and MDM of this patient, discussed the same with the dictator, and agree with the dictator's assessment and plan as written ,documented as a scribe. Based on total visit time, I have performed more than 50% of the visit. Objective - Vital Signs Vital signs: Vital Signs Temp 99.9 F H 04/23/24 08:00 Pulse 90 10/03/23 08:00 Resp 15 10/03/23 08:00 BP 132/95 10/03/23 08:00 Pulse Ox 95 10/03/23 08:00 FiO2 Intake & Output 10/02/23 10/03/23 10/03/23 18:59 06:59 18:59 Intake Total 2060 1099.985 20 Output Total 450 300 475 Balance 1610 799.985 -455 Weight 99.79 kg 106.7 kg Intake: IV 1210 900 20 0.9 sodium chloride 810 900 20 Intake, IV Titration 199.985 Amount Heparin Sod,Pork in 0.45% 199.385 NaCl 25,000 unit In 0.45 % NaCl 1 250ml.bag @ 10. 021 UNITS/KG/HR 10 mls/hr IV .Q24H [facility] Rx#: [id number] Nitroglycerin-D5w Pmx 50 0.6 mg In Dextrose/Water 1 250ml.bag @ 5 MCG/MIN 1.5 mls/hr IV .Q24H [facility] Rx#: [id number] Oral 850 Output: Urine 450 300 475 Other: Voiding Method Urinal Urinal Urinal - Labs CBC & Chem 7: 10/03/23 05:30 10/03/23 05:30 Labs: Abnormal Lab Results - Last 24 Hours (Table) 10/02/23 10/02/23 10/02/23 Range/Units 10:31 19:45 21:02 WBC (3.8-10.6) k/uL Neutrophils # (1.3-7.7) k/uL Monocytes # (0-1.0) k/uL APTT 35.1 H (22.0-30.0) sec Sodium (137-145) mmol/L Creatinine (0.66-1.25) mg/dL Glucose (74-99) mg/dL POC Glucose (mg/dL) 139 H (70-110) mg/dL Troponin I 43.300 H* (0.000-0.034) ng/mL 10/03/23 10/03/23 10/03/23 Range/Units 00:40 03:32 03:32 WBC 16.6 H (3.8-10.6) k/uL Neutrophils # 14.1 H (1.3-7.7) k/uL Monocytes # 1.1 H (0-1.0) k/uL APTT 38.5 H (22.0-30.0) sec Sodium (137-145) mmol/L Creatinine (0.66-1.25) mg/dL Glucose (74-99) mg/dL POC Glucose (mg/dL) (70-110) mg/dL Troponin I 56.300 H* (0.000-0.034) ng/mL 10/03/23 10/03/23 10/03/23 Range/Units 03:32 05:30 05:30 WBC 15.7 H (3.8-10.6) k/uL Neutrophils # 13.5 H (1.3-7.7) k/uL Monocytes # (0-1.0) k/uL APTT (22.0-30.0) sec Sodium (137-145) mmol/L Creatinine (0.66-1.25) mg/dL Glucose (74-99) mg/dL POC Glucose (mg/dL) (70-110) mg/dL Troponin I 49.200 H* 48.100 H* (0.000-0.034) ng/mL 10/03/23 Range/Units 05:30 WBC (3.8-10.6) k/uL Neutrophils # (1.3-7.7) k/uL Monocytes # (0-1.0) k/uL APTT (22.0-30.0) sec Sodium 134 L (137-145) mmol/L Creatinine 0.64 L (0.66-1.25) mg/dL Glucose 130 H (74-99) mg/dL POC Glucose (mg/dL) (70-110) mg/dL Troponin I (0.000-0.034) ng/mL
[2023-10-03] MEDS: METOPROLOL SUCCINATE (ER) 25 MG TAB.ER.24H PO SCH (20:24)
[2023-10-04] MEDS: ACETAMINOPHEN TAB 325 MG TAB PO PRN (00:16)
--- NOTE | 2023-10-04 00:52 | XR ---
EXAM: XR Chest, 1 View CLINICAL HISTORY: ITS.REASON XR Reason: sob TECHNIQUE: Frontal view of the chest. COMPARISON: No relevant prior studies available. FINDINGS: Lungs: Unremarkable. No consolidation. Pleural space: Unremarkable. No pneumothorax. Heart: Cardiomegaly. Mediastinum: Unremarkable. Normal mediastinal contour. Bones/joints: Unremarkable. No acute fracture. IMPRESSION: No acute findings in the chest.
[2023-10-04] MEDS ORDERED: ALPRAZolam 0.5 MG TAB PO PRN (07:45)
[2023-10-04] MEDS ORDERED: NITROGLYCERIN SL TABS 0.4 MG TAB SUBLINGUAL PRN (07:45)
[2023-10-04] MEDS ORDERED: VERAPAMIL 2.5 MG/ML 2 ML AMP ONE (10:19)
[2023-10-04] MEDS ORDERED: fentaNYL (PF) 50 MCG/ML 2 ML AMP ONE (10:38)
[2023-10-04] MEDS ORDERED: HEPARIN SODIUM 1,000 UN/ML (10ML VL) ONE (10:38)
[2023-10-04] MEDS: fentaNYL (PF) 50 MCG/ML 2 ML AMP IVP ONE (10:50)
[2023-10-04] MEDS: MIDAZOLAM 2 MG/2 ML VIAL IVP ONE (10:50)
[2023-10-04] MEDS: LIDOCAINE 1% INJ 10MG/ML (5 ML VIAL-PF) SQ ONE (10:58)
[2023-10-04] MEDS: VERAPAMIL SYRINGE (5 MG/10 ML) INTRAARTER ONE (11:00)
[2023-10-04] MEDS: PHENYLEPHRINE-0.9% NACL SYG 1,000 MCG/10 ML SYRINGE IVP ONE ×2 (11:04→11:07)
[2023-10-04] MEDS: HEPARIN SODIUM 1,000 UN/ML (10ML VL) IVP ONE ×2 (11:04→11:23)
[2023-10-04] MEDS ORDERED: LIDOCAINE 1% INJ 10MG/ML (20 ML MDV) ONE (11:35)
[2023-10-04] MEDS: LIDOCAINE 1% INJ 10MG/ML (20 ML MDV) SQ ONE (11:40)
[2023-10-04] MEDS: NITROGLYCERIN 1000MCG/10ML SYRINGE INTRACORON ONE (11:59)
[2023-10-04 12:00] LABS: O2 Sat Blood Gas 58.4 %
[2023-10-04 12:02] LABS: O2 Sat Blood Gas 60.5 %
[2023-10-04 12:03] LABS: O2 Sat Blood Gas 94.8 %
[2023-10-04] MEDS: IOPAMIDOL-370 100ML BTL INJ ONE ×2 (12:13)
[2023-10-04] MEDS: SODIUM CHLORIDE 0.9% 1,000 ML IV ONE (12:13)
[2023-10-04] MEDS: EMPTY BAG 1 BAG with SODIUM CHLORIDE 0.9% 1,000 ML IV ONE (12:45)
[2023-10-04] MEDS: ALPRAZolam 0.25 MG TAB PO PRN (13:17)
--- NOTE | 2023-10-04 15:13 | P.PN ---
Subjective Progress Note Date: 10/04/23 This is a 63-year-old male who presented to the emergency department with family after reporting getting up this morning and having some increasing chest pain 10/10 on the pain scale that was substernal and radiating down both of his arms. Patient reports he was driving his way to work and turned around went back home and asked his family to bring him. Patient also reported he had been having some chest pain intermittently on Monday that lasted a few hours with some heaviness although somewhat subsided. Patient reports Monday was okay with no acute issues and Monday morning the symptoms presented again with worsening pain. Patient does follow with Dr. Nicholas in the outpatient setting with no reported significant comorbidities other than obesity with a BMI of 33.5. Patient reports he does not smoke and occasionally drinks a few times a week and denies any other illicit drug use. EKG was suggestive of STEMI and code STEMI was called and patient was brought to the Dock Operator. Chest x-ray in the ER showed no evidence for acute pulmonary disease and heart size is stable. Labs revealed a troponin of 0.820, blood sugar was 149, kidney functions within normal limits, white count mildly reactive at 11.8. Patient denies any recent sick contacts or any increased stress in his life. Patient was admitted and awaiting catheterization report. 10/03/2023 Patient was seen and evaluated in follow-up this morning in the ICU and apparently had increased shortness of breath, diaphoresis, chest pain and brought back to the Dock Operator yesterday afternoon showing patent stents. Patient does have significant coronary with concerns of needing further stenting and will continue with cardiac regimen for now and close ICU monitoring on a nitro drip and considering repeat cardiac catheterization for further PCI stenting on 10/04/2023. Patient to continue with morphine as needed as well. Blood pressures on the lower side and will be monitored closely. Patient is afebrile and denies nausea or vomiting and reports not much of an appetite. Patient is currently on bedrest at this time. Patient is somewhat anxious and reports 6 out of 10 pain with jaw pain and included in recurrent chest pain symptoms. 10/04/2023 Patient seen and evaluated in follow-up today continues in the ICU with cardiology following closely. Plan is for cardiac catheterization today and currently down in preop and will follow-up with the patient. Per nursing staff patient continued to report chest pain and multiple episodes of diaphoresis and increased anxiety with chest pains. Will await cardiology report and continue with current cardiology medications as prescribed. Overall prognosis remains guarded at this time. Review of systems: Constitutional: No reports of fatigue, fever, or chills, reports of being slightly anxious Cardiovascular: reports of chest pain as well as jaw pain Respiratory: No reports of worsening shortness of breath or cough GI: No reports of nausea, vomiting, or diarrhea, reports not much of an appetite : No reports of dysuria or retention Neurovascular: No reports of weakness or numbness All medications have been reviewed PHYSICAL EXAMINATION: GENERAL: The patient is alert and oriented x3, Well developed, well nourished. Obese, anxious HEENT: Pupils are round and equally reacting to light. EOMI. No scleral icterus. No conjunctival pallor. Normocephalic, atraumatic. No pharyngeal erythema. No thyromegaly. CARDIOVASCULAR: S1 and S2 muffled PULMONARY: Chest is clear to auscultation, no wheezing or crackles. ABDOMEN: Soft, nontender, nondistended, normoactive bowel sounds. No palpable organomegaly. MUSCULOSKELETAL: No joint swelling or deformity. EXTREMITIES: No cyanosis, clubbing, or pedal edema. NEUROLOGICAL: Gross neurological examination did not reveal any focal deficits. SKIN: No rashes. Assessment: Chest pain, acute STEMI status post left heart cardiac catheterization with PCI stenting to the LAD proximal RCA and mid RCA with persistent chest pain underwent further cardiac catheterization with patent stents undergoing repeat cardiac catheterization today 10/04/2023 Elevated troponin, secondary to above Leukocytosis, likely reactive Obesity with a BMI of 33.5 GI prophylaxis DVT prophylaxis Full code Plan: Patient is status postcardiac catheterization with [address] Lainez and cardiology following closely. Apparently patient had increased chest pain with diaphoresis and dizziness and jaw pain and was brought back to the Dock Operator noted to have patent stents. Plan is for recatheterization today on 10/04/2023 for continued symptoms and possibly further PCI stenting. Will await cardiology report Patient is continued in the ICU on close management recommend continued telemetry monitoring Continue current medications per cardiology Echo was noted to be an EF of 35 to 40% with severe LV dysfunction noted in the distal half of the LV appears aneurysmal with no obvious intracardiac thrombus Currently n.p.o. and diet will be resumed once cleared by surgery, encouraged oral intake with small frequent meals repeat labs for a.m. Prognosis is extremely guarded at this time The impression and plan of care has been dictated by Susanne Looney, Nurse Practitioner as directed. Dr. Alonso MD I have performed a history and examination and MDM of this patient, discussed the same with the dictator, and agree with the dictator's assessment and plan as written ,documented as a scribe. Based on total visit time, I have performed more than 50% of the visit. Objective - Vital Signs Vital signs: Vital Signs Temp 98.5 F 10/04/23 08:00 Pulse 98 10/04/23 09:00 Resp 22 10/04/23 09:00 BP 99/73 10/04/23 09:00 Pulse Ox 94 L 10/04/23 09:00 FiO2 Intake & Output 10/03/23 10/04/23 10/04/23 18:59 06:59 18:59 Intake Total 813.865 808.349 119.1 Output Total 1450 250 225 Balance -636.135 558.349 -105.9 Weight 106.7 kg 105.9 kg Intake: IV 200 220 60 0.9 sodium chloride 200 220 60 Intake, IV Titration 113.865 288.349 59.1 Amount Heparin Sod,Pork in 0.45% 50.615 109.899 NaCl 25,000 unit In 0.45 % NaCl 1 250ml.bag @ 10. 021 UNITS/KG/HR 10 mls/hr IV .Q24H [facility]BER Rx#: [id number] Nitroglycerin-D5w Pmx 50 63.250 178.45 59.1 mg In Dextrose/Water 1 250ml.bag @ 5 MCG/MIN 1.5 mls/hr IV .Q24H BARBER Rx#: [id number] Oral 500 300 Output: Urine 1450 250 225 Other: Voiding Method Urinal Urinal Urinal - Labs CBC & Chem 7: 10/03/23 05:30 10/03/23 05:30 Labs: Abnormal Lab Results - Last 24 Hours (Table) 10/03/23 10/04/23 Range/Units 11:47 05:52 APTT 47.4 H 43.0 H (22.0-30.0) sec
[2023-10-05] MEDS ORDERED: ATROPINE SULFATE 0.1 MG/ML 10ML SYRINGE IV PRN (02:30)
[2023-10-05] MEDS ORDERED: RX INFO: IV CONTRAST WAS GIVEN 1 EACH MISC MISCELLANE PRN (02:30)
--- NOTE | 2023-10-05 02:30 | P.PRCINT ---
Percutaneous Coronary Int. - Percutaneous Coronary Intervention Percutaneous Coronary Intervention: PROCEDURES PERFORMED: Left and right heart catheterization, bilateral coronary angiography, ultrasound guided arterial access, PCI of OM2 with a 2.0 x 12 [place] FABRIZIO, PCI proximal to mid PLV with a 2.5 x 33mm Xience FABRIZIO, post dilated with a 2.75mm NC balloon, IVUS RCA/PLV INDICATION: STEMI status post PCI with conitnued angina CONSENT:I have discussed the risks, benefits and alternative therapies for the above-mentioned procedure and for both sedation/analgesia as well as necessary blood product administration, if indicated, as they pertain to this patient. The patient has indicated understanding and acceptance of the risks and procedures discussed. PROCEDURE: After the risks, benefits and alternatives of the above mentioned procedure explained in detail with the patient, informed consent was obtained. Patient was taken to the catheterization lab and prepped and draped in usual fashion. Ultrasound guidance was used to assess for arterial access. 1% lidocaine was used to anesthetize the right radial artery. A 6-Japanese sheath was placed in the right radial artery using modified Seldinger technique and ultrasound guidance. Left coronary angiography was performed with a 6-Japanese CLS 3.5 guide catheter. The decision was made to perform PCI of the circumflex. Patient did have some hypotensive episodes and required Neosynephrine which was felt related to sedation. A 0.014 BMW wire was advanced into the distal OM2 branch. Predilation was performed with a 2.0 balloon. Next PCI was performed with a 2.0 x 12mm [place] FABRIZIO. Final angiograms were performed. Preintervention there was 99% stenosis and JOHN PAUL 1 flow and post intervention there was < 10% stenosis and JOHN PAUL 3 flow. There was some concern regarding possible decompensated heart failure and need for Impella support given his RCA was his main remaining vessel after occluded LAD, recent STEMI and therefore decision was made to perform left and right heart catheterization prior to intervention of the RCA. A 6Fr pigtail catheter was inserted into the LV and pressure measurements were obtained. Next a 6Fr sheath was inserted into the right brachial vein using Seldinger technique. A 6 Fr [place] catheter was inserted into the RA, RV, PA, PCWP positions and pressure and oxygen saturations were obtained. Thermodilution was performed. The CO/CI appeared adequate and therefore no Impella was recommended. Next the decision was made to perform PCI of the PLV. A 6 Fr AL 0.075 guide was used to engage the RCA. A 0.014 BMW wire was advanced into the distal PLV. Predilation was performed with 2.0 x 12mm balloon. Next a 2.5 x 33mm Xience FABRIZIO was advanced and deployed in the proximal to mid PLV. IVUS was performed which showed some underexpansion and therefore a 2.75mm NC balloon was used to post dilated the stent. Repeat IVUS was performed which showed excellent stent apposition and no dissection. There was mild disease more distal to the stent felt best treated medically. Final angiograms were performed. Preintervention there was 90% PLV stenosis with JOHN PAUL 3 flow and post intervention there was < 10% stenosis and JOHN PAUL 3 flow. Patient had been having persistent chest pain 4/10 prior to intervention however did improve after intervention. The right radial sheath was removed and a TR band was placed with hemostasis achieved. The brachial sheath was removed and pressure held. The patient tolerated the procedure well. Patient was transported back to the post catheterization holding area in stable condition. Conscious Sedation: Patient was monitored under the direct supervision of myself for conscious sedation using Versed and fentanyl for a total duration of 77 minutes HEMODYNAMICS: Aortic: 85/61 LV: 90/18, LVEDP 31 PCWP: 24 PA: 32/24 RV: 37/9 RA: 15 RA oxygen saturation: 58% PA oxygen saturation: 61% Right radial oxygen saturation: 95% Cardiac output by PATEL: 4.8 L/min Cardiac index by PATEL: 2.2 L/min/m2 Cardiac output by thermodilution: 5.0 L/min Cardiac index by thermodilution: 2.3 L/min/m2 SELECTIVE CORONARY ARTERIOGRAPHY: LEFT MAIN: The left main is a large caliber vessel which bifurcates into the LAD and circumflex. There is no significant stenosis. LEFT ANTERIOR DESCENDING CORONARY ARTERY: LAD is a large caliber vessel which wraps around to the apex. There is a patent proximal LAD stent. This gives off a moderate caliber diagonal 1 branch and then after the diagonal branch gives off a small to moderate first septal and a small caliber diagonal 2 branch. There does appear to be total occlusion of the mid LAD with some faint left to left collaterals. LEFT CIRCUMFLEX CORONARY ARTERY: Left circumflex is a moderate caliber vessel. The circumflex gives off a very small caliber OM1 and then a more small to moderate caliber OM 2 branch. OM 2 branch has a proximal 99% stenosis. The circumflex then gives off an AV branch circumflex without significant disease. RIGHT CORONARY ARTERY: The right coronary artery is a large caliber vessel which gives off a PDA and PLV branch and is the dominant vessel. There is a patent proximal RCA and mid to distal RCA stent. The mid RCA has a 30% stenosis. The PLV has a mid 90% stenosis. FINAL IMPRESSION: 1. CAD as described above with patent proximal LAD, proximal and mid RCA stent, OM 2 99% and PLV 90% stenosis. 2. S/p PCI of OM2 with a 2.0 x 12 [place] FABRIZIO, PCI proximal to mid PLV with a 2.5 x 33mm Xience FABRIZIO, post dilated with a 2.75mm NC balloon 3. Elevated left and right sided filling pressures 4. Low normal cardiac output/ cardiac index PLAN: 1. Aggressive risk factor modification per most recent ACC/AHA guidelines. 2. Continue dual antiplatelets with aspirin and Brillinta for 12 months 3. Increase diuresis
[2023-10-05 05:56] LABS: Basophils % (A) 0 %; Eosinophils % (A) 0 %; HCT 37.7 % (39.0-53.0); HGB 12.9 gm/dL (13.0-17.5); Lymphocytes # (A) 0.7 k/uL (1.0-4.8); Lymphocytes % (A) 4 %; MCHC 34.2 g/dL (31.0-37.0); MCV 96.4 fL (80.0-100.0); Monocytes % (A) 6 %; Neutrophils # (A) 14.8 k/uL (1.3-7.7); Neutrophils % (A) 88 %; Platelet Count 169 k/uL (150-450); RBC 3.91 m/uL (4.30-5.90); RDW 13.1 % (11.5-15.5); WBC 16.8 k/uL (3.8-10.6)
[2023-10-05 06:39] LABS: ALT 68 U/L (4-49); AST 107 U/L (17-59); African American GFR (CKD) >90 (>60 ml/min/1.73 sqM); Albumin 3.3 g/dL (3.5-5.0); Alkaline Phosphatase 56 U/L (38-126); Anion Gap 9 mmol/L; Blood Urea Nitrogen 23 mg/dL (9-20); Calcium 8.4 mg/dL (8.4-10.2); Carbon Dioxide 20 mmol/L (22-30); Chloride 101 mmol/L (98-107); Glucose 105 mg/dL (74-99); Magnesium 2.1 mg/dL (1.6-2.3); Non-African American GFR(CKD) >90 (>60 ml/min/1.73 sqM); Potassium 4.2 mmol/L (3.5-5.1); Sodium 130 mmol/L (137-145); Total Bilirubin 2.2 mg/dL (0.2-1.3); Total Protein 5.9 g/dL (6.3-8.2)
[2023-10-05] MEDS ORDERED: HEPARIN SODIUM,PORCINE 10,000 UNIT in SODIUM CHLORIDE 0.9% 1,000 ML IRRIGATION PRN (07:00)
[2023-10-05] MEDS ORDERED: HEPARIN SODIUM,PORCINE (1 ML) 2,500 UNIT in SODIUM CHLORIDE 0.9% 250 ML IRRIGATION PRN (07:00)
[2023-10-05] MEDS ORDERED: ONDANSETRON 4 MG/2 ML VIAL IVP PRN (14:34)
[2023-10-05] MEDS ORDERED: LOPERAMIDE 2 MG CAP PO PRN (14:34)
[2023-10-05] MEDS: LOPERAMIDE 2 MG CAP PO STA (15:03)
[2023-10-05 15:30] VITALS: BP 125/94; PULSE 111; RESP 22; TEMP 98.2
--- NOTE | 2023-10-05 17:05 | P.PN ---
Subjective History of present illness: This is a 63-year-old male patient with no previous cardiac history, does not follow with a exercise manager. Patient developed chest pain on Monday that was pressure along with discomfort in both arms. He presented to the emergency center this morning stating pain was a 10 out of 10. Initial blood pressure 154/105. Patient was found to have ST elevation on initial EKG and STEMI alert was called and patient was immediately taken to the Staff Anesthesiologist. Home cardiac medications: None 10/02 patient seen and examined. Patient had recurrent chest pain yesterday with rising elevated troponins. Initially after catheterization his chest pain was approximate 4 however it had increased up to 8 and this was somewhat improved with nitro. Nitro however brought his blood pressure down. Given concern of stent thrombosis repeat heart catheterization was performed which showed stable stents however still residual small caliber circumflex and PLV. He has had fluctuating chest pain and this is somewhat improved with morphine and nitro. It is still however 4 out of 10. He does get some pain with [id number] exertion. The LAD appears to be flush occluded and suspicion of UNDERLAY STITCHER. Given ongoing symptoms however we discussed possibly repeating heart catheterization and possible PCI of circumflex or PLV. 10/03 patient seen and examined. Patient had repeat heart catheterization and stenting of the circumflex and PLV and his chest pain did actually improve and was taken off the nitroglycerin. He denies any further chest pain. Is also had right heart catheterization performed which showed adequate cardiac out put/cardiac index however on the lower end and additionally elevated LVEDP and filling pressures. Therefore he was started on Lasix. He still does admit to some shortness breath however he states fairly mild. Physical examination: Gen: This is a 63-year-old male, appears stable. No acute respiratory distress. VS: reviewed HEENT: Head is atraumatic, normocephalic. Pupils equal, round. Sclerae is anicteric. NECK: Supple. No JVD. LUNGS: Clear to auscultation. No wheezes or rhonchi. No intercostal retractions. HEART: Regular rate and rhythm. No murmur. ABDOMEN: Soft No tenderness. EXTREMITIES: No pedal edema. No calf tenderness. NEUROLOGICAL: Patient is awake, alert and oriented x3. Assessment: Anterior wall ST elevated AR Accelerated hypertension recurrent chest pain Ischemic cardiomyopathy EF 35-40% acute on chronic systolic heart failure Plan: optimize heart failure regimen as able. Continue dual antiplatelets with aspirin and Brilinta status post PCI of PLV and circumflex Patient is stable for discharge home and additionally continue Lasix 40 mg daily oral on discharge Objective - Vital Signs Vital signs: Vital Signs Temp 98.2 F 10/05/23 15:03 Pulse 111 H 10/05/23 15:03 Resp 22 10/05/23 15:03 BP 125/94 10/05/23 15:03 Pulse Ox 92 L 10/05/23 15:03 FiO2 Intake & Output 10/04/23 10/05/23 10/05/23 18:59 06:59 18:59 Intake Total 1698.115 160 256 Output Total 225 1150 Balance 1473.115 -990 256 Intake: IV 1490 160 20 0.9 sodium chloride 540 160 Invasive Line 1 20 Intake, IV Titration 208.115 Amount Heparin Sod,Pork in 0.45% 111.065 NaCl 25,000 unit In 0.45 % NaCl 1 250ml.bag @ 10. 021 UNITS/KG/HR 10 mls/hr IV .Q24H [facility]BER Rx#: [id number] Nitroglycerin-D5w Pmx 50 97.05 mg In Dextrose/Water 1 250ml.bag @ 5 MCG/MIN 1.5 mls/hr IV .Q24H BARBER Rx#: [id number] Oral 236 Output: Urine 225 1150 Other: Voiding Method Urinal Urinal Urinal # Voids 1 2 # Bowel Movements 1 3 - Labs CBC & Chem 7: 10/05/23 05:00 10/05/23 05:00 Labs: Abnormal Lab Results - Last 24 Hours (Table) 10/05/23 10/05/23 Range/Units 05:00 05:00 WBC 16.8 H (3.8-10.6) k/uL RBC 3.91 L (4.30-5.90) m/uL Hgb 12.9 L (13.0-17.5) gm/dL Hct 37.7 L (39.0-53.0) % Neutrophils # 14.8 H (1.3-7.7) k/uL Lymphocytes # 0.7 L (1.0-4.8) k/uL Sodium 130 L (137-145) mmol/L Carbon Dioxide 20 L (22-30) mmol/L BUN 23 H (9-20) mg/dL Glucose 105 H (74-99) mg/dL Total Bilirubin 2.2 H (0.2-1.3) mg/dL AST 107 H (17-59) U/L ALT 68 H (4-49) U/L Total Protein 5.9 L (6.3-8.2) g/dL Albumin 3.3 L (3.5-5.0) g/dL
[2023-10-06] MEDS ORDERED: FUROSEMIDE 40 MG TAB PO SCH (09:00)
--- NOTE | 2023-10-06 13:05 | P.DS ---
Providers Date of admission: 10/02/23 08:44 Expected date of discharge: 10/05/23 Attending physician: Amari Bustos Consults: 10/02/23 08:45 Consult Physician Stat Consulting Provider: Lauri Lainez Consult Reason/Comments: stemi Do you want consulting provider notified?: Already Contacted 10/02/23 12:31 Consult Physician Routine Consulting Provider: Supa Nguyen Consult Reason/Comments: Post Interventional Patient Do you want consulting provider notified?: Already Contacted 10/05/23 02:31 Consult Physician Routine Consulting Provider: Supa Nguyen Consult Reason/Comments: Post Interventional Patient Do you want consulting provider notified?: Already Contacted Primary care physician: Radha Nicholas Hospital Course: Final diagnosis Chest pain, acute STEMI status post left heart cardiac catheterization with PCI stenting to the LAD proximal RCA and mid RCA with persistent chest pain underwent further cardiac catheterization with patent stents Status post repeat cardiac catheterization 10/04/2023 with PCI stenting of the PLV and circumflex Elevated troponin, secondary to above Leukocytosis, likely reactive Obesity with a BMI of 33.5 GI prophylaxis DVT prophylaxis Full code Discharge disposition Patient is being discharged in a stable condition with guarded prognosis to home. Patient will follow-up with Dr. Nicholas in the outpatient setting upon discharge. Patient is to continue with current medications as prescribed per cardiology and close outpatient follow-up with Dr. Lainez as scheduled. Total time taken is greater than 35 minutes. Hospital course This is a 63-year-old male who was recently admitted with STEMI status post left heart cardiac catheterization with PCI stenting to the LAD and proximal RCA as well as mid RCA. Patient continued to have persistent chest pain and severely symptomatic underwent repeat cardiac catheterization with PCI stenting of the PLV and circumflex. Patient will continue on Lasix on discharge with close outpatient follow-up with cardiology. Patient to continue on dual antiplatelet therapy with aspirin and Brilinta per cardiology. Most recent EF is 35 to 40% with ischemia as well as acute on chronic systolic heart failure. Patient will be monitored on current regimen recommending follow-up with cardiology prior to returning to work. Patient with some nausea and diarrhea we will use as needed Zofran as well as Imodium and instructed patient to follow-up with his primary care provider this week. Continue heart healthy diet. Please refer to cardiology notes for further HPI. Patient has been cleared for discharge home. Currently no reports of chest pain, shortness of breath, or palpitations. Patient is afebrile. No reports of nausea or vomiting and patient is tolerating diet. Patient will be going home today. Guarded prognosis. Physical exam: Gen: This is a 63-year-old male who is awake, alert and oriented x 3, well- developed, well-nourished, obese HEENT: Head is atraumatic, normocephalic. Pupils equal, round. Sclerae is anicteric. NECK: Supple. No JVD. No lymphadenopathy. No thyromegaly. LUNGS: Diminished breath sounds bilaterally otherwise clear to auscultation. No wheezes or rhonchi. No intercostal retractions. HEART: S1, S2 are muffled ABDOMEN: Soft. Obese. Bowel sounds are present. No masses. No tenderness. EXTREMITIES: No pedal edema. No calf tenderness. NEUROLOGICAL: Patient is awake, alert and oriented x3. Cranial nerves 2 through 12 are grossly intact. Please refer to medication reconciliation sheet for a list of medications. The impression and plan of care has been dictated by Susanne Looney, Nurse Practitioner as directed. Dr. Alonso MD I have performed a history and examination and MDM of this patient, discussed the same with the dictator, and agree with the dictator's assessment and plan as written ,documented as a scribe. Based on total visit time, I have performed more than 50% of the visit. Patient Condition at Discharge: Fair Plan - Discharge Summary Discharge Rx Participant: No New Discharge Prescriptions: New Losartan [Cozaar] 12.5 mg PO DAILY #15 tab Furosemide [Lasix] 40 mg PO DAILY #30 tab Atorvastatin [Lipitor] 80 mg PO HS #30 tab Acetaminophen Tab [Tylenol] 650 mg PO Q6HR PRN tab PRN Reason: Fever And/ Or Pain Ondansetron [Zofran] 4 mg PO Q8HR PRN #20 tab PRN Reason: Nausea Aspirin 81 mg PO DAILY #30 tab Ticagrelor [Brilinta] 90 mg PO BID #60 tab Loperamide [Imodium] 2 mg PO QID PRN #20 cap PRN Reason: Diarrhea Nitroglycerin Sl Tabs [Nitrostat] 0.4 mg SUBLINGUAL Q5M PRN #30 tab PRN Reason: Chest Pain Metoprolol Succinate (ER) [Toprol XL] 25 mg PO BID #60 tab Continue Vitamin D3 (Unknown Strength) 1 dose PO DAILY Vitamin B Complex 1 cap PO DAILY Vitamin C (Unknown Strength) 1 dose PO DAILY Zinc (Unknown Strength) 1 dose PO DAILY Multivitamins, Thera [Multivitamin (formulary)] 1 tab PO DAILY Discharge Medication List Multivitamins, Thera [Multivitamin (formulary)] 1 tab PO DAILY 10/02/23 [History] Vitamin B Complex 1 cap PO DAILY 10/02/23 [History] Vitamin C (Unknown Strength) 1 dose PO DAILY 10/02/23 [History] Vitamin D3 (Unknown Strength) 1 dose PO DAILY 10/02/23 [History] Zinc (Unknown Strength) 1 dose PO DAILY 10/02/23 [History] Acetaminophen Tab [Tylenol] 650 mg PO Q6HR PRN tab 10/05/23 [Rx] Aspirin 81 mg PO DAILY #30 tab 10/05/23 [Rx] Atorvastatin [Lipitor] 80 mg PO HS #30 tab 10/05/23 [Rx] Furosemide [Lasix] 40 mg PO DAILY #30 tab 10/05/23 [Rx] Loperamide [Imodium] 2 mg PO QID PRN #20 cap 10/05/23 [Rx] Losartan [Cozaar] 12.5 mg PO DAILY #15 tab 10/05/23 [Rx] Metoprolol Succinate (ER) [Toprol XL] 25 mg PO BID #60 tab 10/05/23 [Rx] Nitroglycerin Sl Tabs [Nitrostat] 0.4 mg SUBLINGUAL Q5M PRN #30 tab 10/05/23 [Rx] Ondansetron [Zofran] 4 mg PO Q8HR PRN #20 tab 10/05/23 [Rx] Ticagrelor [Brilinta] 90 mg PO BID #60 tab 10/05/23 [Rx] Follow up Appointment(s)/Referral(s): Lauri Lainez DO [STAFF PHYSICIAN] - 1 Week (please call and make follow-up) Radha Nicholas DO [Primary Care Provider] - 1-2 days (please call and make appointment ) Patient Instructions/Handouts: *Sur[facility] - After Heart Catheterization - Retail Financial Analyst Instructions, Heart Attack (DC), Heart Healthy Diet (DC), Return to Work Instructions (DC), Heart Catheterization (DC), After Radial Heart Cat heterization (GEN) Activity/Diet/Wound Care/Special Instructions: Activity limited until follow-up Follow-up with primary care provider on discharge Follow-up with cardiology outpatient in 1 week Continue taking medications as prescribed Continue with heart healthy diet Discharge Disposition: HOME SELF-CARE
== END 2023-10-05 18:57 | disposition home or self-care (01) | DRG 321 ==
LOC: EC 08:15 → 2SICU 08:44
PROVIDERS: ADMIT Hospitalist; ATTEND Hospitalist
PROC: 027136Z Dilation of Coronary Artery, Two Arteries with Three Drug-eluting Intraluminal Devices, Percutaneous Approach (ICD-10-PCS; principal; 2023-10-02 08:36)
PROC: B2111ZZ Fluoroscopy of Multiple Coronary Arteries using Low Osmolar Contrast (ICD-10-PCS; 2023-10-02 08:36)
PROC: B241ZZ3 Ultrasonography of Multiple Coronary Arteries, Intravascular (ICD-10-PCS; 2023-10-02 08:36)
PROC: 4A023N7 Measurement of Cardiac Sampling and Pressure, Left Heart, Percutaneous Approach (ICD-10-PCS; 2023-10-02 08:36)
PROC: 4A023N8 Measurement of Cardiac Sampling and Pressure, Bilateral, Percutaneous Approach (ICD-10-PCS; 2023-10-04)
PROC: B2111ZZ Fluoroscopy of Multiple Coronary Arteries using Low Osmolar Contrast (ICD-10-PCS; 2023-10-04)
PROC: B241ZZ3 Ultrasonography of Multiple Coronary Arteries, Intravascular (ICD-10-PCS; 2023-10-04)
PROC: 3E033XZ Introduction of Vasopressor into Peripheral Vein, Percutaneous Approach (ICD-10-PCS; 2023-10-04)
PROC: 027135Z Dilation of Coronary Artery, Two Arteries with Two Drug-eluting Intraluminal Devices, Percutaneous Approach (ICD-10-PCS; 2023-10-04 09:15)
DX: I21.09 ST elevation (STEMI) myocardial infarction involving other coronary artery of anterior wall (principal); I50.23 Acute on chronic systolic (congestive) heart failure; I25.3 Aneurysm of heart; I11.0 Hypertensive heart disease with heart failure; I25.119 Atherosclerotic heart disease of native coronary artery with unspecified angina pectoris; Z68.33 Body mass index [BMI] 33.0-33.9, adult; E66.9 Obesity, unspecified; D72.828 Other elevated white blood cell count; I25.5 Ischemic cardiomyopathy; F41.9 Anxiety disorder, unspecified; I95.9 Hypotension, unspecified
CPT/HCPCS: 36415; 71045; 76937; 80048; 80053; 80061; 82810; 83735; 84484; 85018; 85025; 85610; 85730; 92978; 92979; 93005; 93306; 93454; 93458; 93460; 94760; 96374; 96375; 99291